=== PATIENT | male | born 1985 | race Caucasian/White ===

== ENCOUNTER 2019-01-01 10:30 | Emergency (ER) | payer SELFPAY ==
[2019-01-01 10:44] VITALS: BMI 27.2
--- NOTE | 2019-01-01 10:54 | PDOC ---
Attending Attestation - Resident Resident Name: Edilson Cruz - ED Attending Attestation I have performed the following: I have examined & evaluated the patient, The case was reviewed & discussed with the resident, I agree w/resident's findings & plan, Exceptions are as noted - HPI HPI: 33 yo M history prior allergic reaction to bee sting presents s/p bee sting. He states he was getting into his car, felt a sting to the back of his neck. He swatted the bee away, unsure if the stinger is still in place. Denies any neck swelling. He states his plan was to go to pharmacy and take benadryl, but when he told a friend that he had a prior reaction to a bee sting, the friend urged him to go to the ER. He denies any throat swelling, SOB at present. - Physicial Exam PE: GENERAL: Awake, alert, and fully oriented, in no acute distress HEAD: No signs of trauma EYES: PERRLA, EOMI, sclera anicteric, conjunctiva clear ENT: Auricles normal inspection, hearing grossly normal, nares patent, oropharynx clear without exudates. Moist mucosa NECK: Normal ROM, supple, no lymphadenopathy, JVD, or masses LUNGS: Breath sounds equal, clear to auscultation bilaterally. No wheezes, and no crackles HEART: Regular rate and rhythm, normal S1 and S2, no murmurs, rubs or gallops ABDOMEN: Soft, nontender, normoactive bowel sounds. No guarding, no rebound. No masses EXTREMITIES: Normal range of motion, no edema. No clubbing or cyanosis. No cords, erythema, or tenderness NEUROLOGICAL: Cranial nerves II through XII grossly intact. Normal speech, normal gait. Motor and sensation intact SKIN: Warm, dry, normal turgor, no rashes or lesions noted. Small puncture to posterior neck, slight erythema, less than 1 cm. No swelling, no deformity, no bleeding. - Medical Decision Making Pt with bee sting, very minimal local reaction. Presents to the ED 30 min later. No airway compromise, no SOB. Vital signs stable. Benadryl prn. Stable for DC home.
[2019-01-01] MEDS ORDERED: diphenhydrAMINE HCL 25 MG CAPSULE (FP) PO ONE ×2 (11:02→11:09)
--- NOTE | 2019-01-01 11:11 | PDOC ---
History of Present Illness - General Chief Complaint: Allergic Reaction Stated Complaint: STUNG BY BEE- ALLERGY Time Seen by Provider: 01/01/19 10:53 History Source: Patient Exam Limitations: No Limitations - History of Present Illness Initial Comments: 01/01/19 11:03 33 yo M with no past medical history with known bee allergy (last stung 18 years ago; required epinephrine with facial swelling with difficulty breathing without intubation) presents to the emergency department after a bee sting to the posterior of the neck that occurred at 10:30 am. The patient was in the car and felt the sting. The bee was described as skinny body with triangular wings but denies wasp and bumble bee species. Washed it out and unsure if removed stinger. Denies the following: fever, chills, SOB, chest pain, nausea, vomiting , Past History - Past Medical History Allergies/Adverse Reactions: Allergies Allergy/AdvReac Type Severity Reaction Status Date / Time bee venom protein (honey bee) Allergy Verified 01/01/19 10:40 Home Medications: Ambulatory Orders NK [No Known Home Medication] 01/01/19 COPD: No - Immunization History Immunization Up to Date: No - Suicide/Smoking/Psychosocial Hx Smoking History: Never smoked Hx Alcohol Use: No Drug/Substance Use Hx: No *Physical Exam - Vital Signs Last Vital Signs Temp Pulse Resp BP Pulse Ox 98.3 F 76 18 141/90 98 01/01/19 10:41 01/01/19 10:41 01/01/19 10:41 01/01/19 10:41 01/01/19 10:41 *DC/Admit/Observation/Transfer Diagnosis at time of Disposition: Allergy - Discharge Dispostion Disposition: HOME Decision to Admit order: No - Referrals Referrals: [facility] [place] [Provider Group] - Patient Instructions Printed Discharge Instructions: DI for Insect Allergy Additional Instructions: You were seen in the emergency department after your bee sting. Please do not drive for several hours after administration of benadryl. Please return to the emergency department if you have worsening symptoms such as closure of airway, shortness of breath, and nausea and vomiting that is uncontrollable. please follow up with your primary medical doctor or the one referred to you within 1 week after discharge. thank you. - Post Discharge Activity Forms/Work/School Notes: Back to Work
[2019-01-01 11:56] VITALS: BP 138/92; PULSE 72; TEMP 98.1
== END 2019-01-01 12:09 | disposition home or self-care (01) ==
LOC: JER 10:30
DX: T63.441A Toxic effect of venom of bees, accidental (unintentional), initial encounter (principal); Y92.810 Car as the place of occurrence of the external cause; Z91.030 Bee allergy status
CPT/HCPCS: 99282-25